=== PATIENT | male | born 1960 | race African-American/Black ===

== ENCOUNTER 2017-10-22 16:47 | Inpatient (IN) | payer OTHER ==
--- NOTE | 2017-10-22 17:40 | RAD ---
ABDOMEN TWO VIEWS: HISTORY: Abdomen pain. FINDINGS: Gas and stool throughout the colon and rectum. No differential air-fluid levels or evidence of free intraperitoneal gas. Calcifications over the pelvis are favored to represent phleboliths. Mild dege nerative changes of the hips. IMPRESSION: No significant abnormalities demonstrated. POS: [facility]
[2017-10-22] MEDS ORDERED: Ondansetron HCl/PF 4 MG/2 ML Vial ONE (17:52)
--- NOTE | 2017-10-22 20:20 | PDOC.FPRHP ---
- History of Present Illness Chief Complaint: admoinal pain History of Present Illness: 57 yo M with PMH of pancreatitis, ETOH abuse transfer from [place] for acute pancreatitis. At [facility] ED Lipase was 211. Started with epigastric pain 3 days ago that has worsened. Worse with food intake and has had associated nausea and vomiting. Also reports watery diarrhea, fevers, chills .Denies recent travel or sick contacts. Patient reports being hospitalized for pancreatitis twice within the past 3 years, says it is due to his chronic alcohol use. However, no definitive etiology was confirmed. He states he was recommended to have a cholcystectomy but it was never performed. Pt. has long standing ETOH abuse, currently drinking 1 pint of vodka per day. His last drink was 3 days ago . ED Course: In the ED pt was afebrile but was experiencing nausea and continued epigastric pain so was given morphine, zofran and 1L NS bolus. - Allergies/Adverse Reactions Allergies Allergy/AdvReac Type Severity Reaction Status Date / Time iodine Allergy Verified 10/22/17 20:48 shellfish derived Allergy Verified 10/22/17 20:48 - Home Medications Medication Instructions Recorded Confirmed Type Thiamine 100 mg PO DAILY #30 tab 09/20/16 10/22/17 Rx Allopurinol 100 mg PO BID 10/22/17 10/22/17 History Amlodipine Besylate [amLODIPine 10 mg PO DAILY 10/22/17 10/22/17 History Besylate] Aspirin [Adult Aspirin] 81 mg PO DAILY 10/22/17 10/22/17 History Citalopram Hydrobromide [CeleXA] 40 mg PO DAILY 10/22/17 10/22/17 History Lisinopril [Zestril] 30 mg PO BID 10/22/17 10/22/17 History Omeprazole 20 mg PO BID 10/22/17 10/22/17 History Zantac 150 mg PO DAILY 10/22/17 10/22/17 History glipiZIDE [Glipizide] 10 mg PO DAILY 10/22/17 10/22/17 History metFORMIN HCl [Metformin HCl] 500 mg PO DAILY 10/22/17 10/22/17 History - History PMHx: Pancreatitis, DM, Gout, HLD, GERD, PTSD PSHx: None FHx:Depression, HTN Social: Smokes 3-4 cigars a week since 1996. Endorses alcohol use for 40 years, used to drink multiple pints a day but has recently cut down to 1 pint of vodka/ day. Former cannabis use. - Review of Systems General: reports: fever/chills, weight/appetite/sleep changes. denies: night sweats Eyes: denies: eye pain, vision changes ENT: denies: nasal congestion, rhinorrhea Respiratory: denies: cough, congestion, shortness of breath Cardiovascular: denies: chest pain, palpitation, edema Gastrointestinal: reports: nausea, vomiting, diarrhea. denies: constipation Genitourinary: denies: dysuria, discharge Skin: denies: rashes, lesions Musculoskeletal: denies: pain, tenderness, swelling, arthritis/arthralgias Neurological: denies: syncope, seizure, weakness Psychological: reports: anxiety, depression - Vital signs BP: [154/88] HR: [59] RR: [16] Tmax: [98.4] Pox: [98]% on [RA] Wt: [81.4] - Physical Exam Constitutional: awake, alert and oriented -Constitutional: mild distress due to abdominal pain HEENT: normocephalic and atraumatic, PERRLA, EOMI, conjunctiva clear FMR H&P: Results - Labs Result Diagrams: 10/23/17 04:15 10/23/17 04:15 Lab results: Lactic Acid 1.1 mmol/L (0.5-2.2) 10/22/17 17:41 FMR H&P: A/P - Problem List (1) Alcohol withdrawal syndrome Current Visit: No Status: Acute Code(s): F10.239 - ALCOHOL DEPENDENCE WITH WITHDRAWAL, UNSPECIFIED (2) Alcohol abuse Current Visit: No Status: Chronic Code(s): F10.10 - ALCOHOL ABUSE, UNCOMPLICATED (3) Anxiety and depression Current Visit: No Status: Chronic Code(s): F41.9 - ANXIETY DISORDER, UNSPECIFIED; F32.9 - MAJOR DEPRESSIVE DISORDER, SINGLE EPISODE, UNSPECIFIED (4) Cholelithiases Current Visit: No Status: Chronic Code(s): K80.20 - CALCULUS OF GALLBLADDER W/O CHOLECYSTITIS W/O OBSTRUCTION Qualifiers: Cholelithiasis location: gallbladder Cholecystitis presence: without cholecystitis Biliary obstruction: without biliary obstruction Qualified Code(s): K80.20 - Calculus of gallbladder without cholecystitis without obstruction (5) Dyslipidemia Current Visit: No Status: Chronic Code(s): E78.5 - HYPERLIPIDEMIA, UNSPECIFIED (6) GERD (gastroesophageal reflux disease) Current Visit: No Status: Chronic Code(s): K21.9 - GASTRO-ESOPHAGEAL REFLUX DISEASE WITHOUT ESOPHAGITIS (7) Hypertension Current Visit: No Status: Chronic Code(s): I10 - ESSENTIAL (PRIMARY) HYPERTENSION - Plan 57 yo M with h/o of acute pancreatitis admitted for acute pancreatitis Acute pancreatitis likely 2/2 etoh abuse vs. cholelithiaiss -Outstanding ETOH abuse likely to that but will obtain RUQ US to r/o cholelithiasis -Lipase elevated at 211, diagnostic with actue pancreatitis -Also consider possibly underlying cholecystitis due to RUQ tenderness, +Bright' s. If U/S confirms, will consult general surgery for cholecstectomy -Due to RLQ tenderness, can consider possible atypical presentation of appendicitis. It pt. symptoms don't resolve with current management of acute pancreatitis, and other workup is negative, can consider CTabdomen to r/o -Start on mIVF, prn meds for pain control, NPO for now with slow advance of diet starting with CLD ETOH Abuse -Pt. not interested in stopping alcohol intake at this point -initiated [place] protocol (ASE score >10) DM2 -continue home meds, SS prn, accuchecsk HTN -continue home meds PTSD -continue home meds GERD -continue home meds FMR H&P: Upper Level - Pertinent history 57 yo AAM with PMH of depression, PTSD, alcohol abuse, HTN, DM2, GERD presenting for acute worsening of abdominal pain and NVD. Pt notes that for the past 3 days, he has begun feeling worse. It started with midepigastric pain 3 days ago and progressed to NVD 2 days ago. He has a history of EtOH abuse and multiple admissions for acute on chronic pancreatitis. Pt knows he needs to stop drinking and has before but recently relapsed. Pt endorses an inability to tolerate PO intake for the last 2 days so has not taken any of his normal medications. Pt denies fevers/chills, [place], CP, palpitations, cough, SOB, rash, or sick contacts. - Pertinent findings Vital signs reviewed in ER and wnl Gen: well developed, well nourished, in NAD CV: RRR, good S1/S2 Resp: normal effort, good air movement, CTAB Abd: BS+, diffusely TTP epigastrium especially RUQ and midline. voluntary guarding, no rebound. - Plan Date/Time: 10/22/172019 I, Niles Chen MD PGY3, have evaluated this patient and agree with findings/ plan as outlined by architectural intern resident. Pertinent changes/additions are listed here. 1. Acute pancreatitis 2/2 EtOH abuse vs cholelithiasis -Pt has a longstanding history of EtOH abuse and multiple hospital admissions for pancreatitis. He states he knows alcohol is the cause of this problems but notes at one point he was told he had gallstones a recommendation was made to have a cholecystectomy. EtOH more likely cause but will obtain RUQ US to rule out gallstone pancreatitis. -Pt meets diagnostic criteria with clinical exam and lipase that is >3x the upper limit of normal. Pt clinically stable at this time and appears to be mild pancreatitis. Sreedhar's score 1 due to age. -Admit to observation and plan for continued IVF, pain control, and introduction of diet when able to tolerate. -Clear liquid diet ordered to begin after obtaining abdominal US. 2. EtOH Abuse -Counseled cessation. -Pt's last EtOH was about 3 days ago. -Monitor with ASE scores. 3. HTN -Continue home medications, PRNs available. 4. DM2 -Continue home medications when pt starts PO intake. -Accuchecks qACHS. 5. Depression -Continue citalopram. PPx: Lovenox for VTE, Famotidine for GI. CODE status: FULL disposition: Admit under observation status for anticipated length of stay less than two midnights pending clinical course.
[2017-10-22] MEDS ORDERED: HYDROcodone/Acetaminophen 5/325 mg Tablet PO PRN ×2 (20:28)
[2017-10-22] MEDS ORDERED: Ondansetron HCl/PF 4 MG/2 ML Vial IVP PRN (20:28)
[2017-10-22] MEDS ORDERED: Ondansetron ODT 4 MG TAB SL PRN (20:28)
[2017-10-22] MEDS ORDERED: Sodium Chloride 0.9% 1,000 ML IV SCH (20:28)
[2017-10-22] MEDS ORDERED: Acetaminophen 325 MG TAB PO PRN (20:28)
[2017-10-22] MEDS ORDERED: Dextrose 50% Abboject 50 ML SYRINGE SLOW IVP PRN (21:20)
[2017-10-22] MEDS ORDERED: Dextrose 5% in Water 1,000 ML IV PRN (21:20)
[2017-10-22] MEDS ORDERED: Famotidine/PF 20 mg/2ml Vial SLOW IVP PRN (21:22)
[2017-10-22] MEDS ORDERED: HumaLOG 300 UNITS/3 ML VIAL SC PRN ×2 (21:22)
[2017-10-23] MEDS ORDERED: Lactated Ringer's 1,000 ML IV SCH (01:15)
[2017-10-23] MEDS ORDERED: Sodium Chloride 0.9% 1,000 ML IV SCH (02:00)
[2017-10-23 04:40] LABS: #Basophils 0.1 thou/uL (0.0-0.2); #Eosinphils 0.1 thou/uL (0.0-0.7); #Lymphocytes 1.7 thou/uL (1.20-3.40); #Monocytes 0.5 thou/uL (0.11-0.59); #Neutrophils 2.8 thou/uL (1.40-6.50); %Basophils 1.2 % (0.0-1.0); %Eosinophils 1.6 % (0.0-10.0); %Monocytes 8.9 % (0.0-10.0); %Neutrophils 55.3 % (42.0-75.0); Hemoglobin 17.5 g/dL (14.0-18.0); Mean Corpuscular HGB CONC 37.3 g/dL (32.0-36.0); Mean Corpuscular Hemoglobin 36.1 pg (27.0-31.0); Mean Corpuscular Volume 96.7 fL (78.0-98.0); Mean Platelet Volume 6.9 fL (7.4-10.4); Platelet Count 176 thou/uL (130-400); RBC Distribution Width 11.5 % (11.5-14.5); Red Blood Cell (RBC) Count 4.87 mill/uL (4.70-6.10)
[2017-10-23] MEDS: Lisinopril 20 MG TAB PO SCH ×2 (04:40→21:07)
[2017-10-23] MEDS: Amlodipine 10 MG TAB PO SCH (04:42)
[2017-10-23 04:50] LABS: ALT (SGPT) 46 U/L (8-55); AST (SGOT) 36 U/L (5-34); Albumin 4.4 g/dL (3.5-5.0); Alkaline Phosphatase 62 U/L (40-150); Anion Gap 15 mmol/L (10-20); BUN (Urea Nitrogen) 7 mg/dL (8.4-25.7); Bilirubin, Total 0.9 mg/dL (0.2-1.2); Calc. Creatinine Clearance 110 mL/min (70-130); Calcium 9.4 mg/dL (7.8-10.44); Carbon Dioxide 27 mmol/L (22-29); Chloride 101 mmol/L (98-107); Estimated GFR-MDRD Greater than 90; Globulin 3.1 g/dL (2.4-3.5); Glucose 112 mg/dL (70-105); Potassium 3.5 mmol/L (3.5-5.1); Protein, Total 7.5 g/dL (6.0-8.3); Sodium 139 mmol/L (136-145)
[2017-10-23] MEDS ORDERED: Lorazepam 2 MG/ML VIAL SLOW IVP PRN (04:56)
[2017-10-23] MEDS ORDERED: Ondansetron HCl/PF 4 MG/2 ML Vial IVP PRN (08:00)
--- NOTE | 2017-10-23 08:28 | PDOC.FM ---
- Subjective Subjective: Patient states he is nauseous this AM. He states yesterday he did not eat at all due to epigastric pain. The two days prior he had N/V. He last drank 3 days ago a pint of liquor. No significant overnight events. - Objective MAR Reviewed: Yes Vital Signs & Weight: Vital Signs (12 hours) Temp Pulse Resp BP BP Pulse Ox 10/23/17 07:38 97.6 F 75 15 162/105 H 96 10/23/17 04:45 182/107 H 10/23/17 04:42 61 182/107 H 10/23/17 03:19 98.3 F 61 18 179/108 H 98 10/23/17 00:20 98.3 F 58 L 20 173/102 H 96 10/22/17 22:17 172/102 H 10/22/17 21:21 97.9 F 58 L 12 10/22/17 20:34 97.9 F 58 L 12 187/110 H 97 Weight Weight 81.42 kg I&O: 10/22/17 10/23/17 10/24/17 06:59 06:59 06:59 Intake Total 1087 Balance 1087 Result Diagrams: 10/23/17 04:15 10/23/17 04:15 EKG Reviewed by me: No Radiology Reviewed by me: Yes <Geno Goetz - Last Filed: 10/23/17 09:15> - Objective Vital Signs & Weight: Vital Signs (12 hours) Temp Pulse Resp BP BP Pulse Ox 10/23/17 07:38 97.6 F 75 15 162/105 H 96 10/23/17 04:45 182/107 H 10/23/17 04:42 61 182/107 H 10/23/17 03:19 98.3 F 61 18 179/108 H 98 10/23/17 00:20 98.3 F 58 L 20 173/102 H 96 Weight Weight 81.42 kg I&O: 10/22/17 10/23/17 10/24/17 06:59 06:59 06:59 Intake Total 1087 Balance 1087 Result Diagrams: 10/23/17 04:15 10/23/17 04:15 <Ciera Fields - Last Filed: 10/23/17 10:55> Phys Exam - Physical Examination Constitutional: NAD HEENT: moist MMs Neck: supple Respiratory: no wheezing, clear to auscultation bilateral Cardiovascular: RRR, no significant murmur Gastrointestinal: soft Tender to palpation in epigastric region, RUQ and LLQ Positive Bright's sign Musculoskeletal: no edema, pulses present Neurological: non-focal Psychiatric: A&O x 3 Skin: no rash, normal turgor, cap refill <2 seconds <Geno Goetz - Last Filed: 10/23/17 09:15> Dx/Plan (1) Pancreatitis, acute Code(s): K85.90 - ACUTE PANCREATITIS WITHOUT NECROSIS OR INFECTION, UNSP Status: Acute Qualifiers: Pancreatitis type: alcohol induced (2) Alcohol abuse Code(s): F10.10 - ALCOHOL ABUSE, UNCOMPLICATED Status: Chronic (3) Anxiety and depression Code(s): F41.9 - ANXIETY DISORDER, UNSPECIFIED; F32.9 - MAJOR DEPRESSIVE DISORDER, SINGLE EPISODE, UNSPECIFIED Status: Chronic (4) Dyslipidemia Code(s): E78.5 - HYPERLIPIDEMIA, UNSPECIFIED Status: Chronic (5) GERD (gastroesophageal reflux disease) Code(s): K21.9 - GASTRO-ESOPHAGEAL REFLUX DISEASE WITHOUT ESOPHAGITIS Status: Chronic (6) Hypertension Code(s): I10 - ESSENTIAL (PRIMARY) HYPERTENSION Status: Chronic - Plan Plan: Acute pancreatitis likely 2/2 etoh abuse vs. cholelithiaiss -Hx of ETOH abuse likely contributing to acute pancreatitis. Patient states he last drank 3 days ago which is when N/V started; RUQ US to r/o cholelithiasis -Lipase elevated at 211 -If u/s confirms gallstones, may consult general surgery -continue on mIVF, prn meds for pain control, NPO for now with slow advance of diet starting with CLD -zofran for nausea ETOH Abuse -Pt. not interested in quitting alcohol intake at this point -initiated ASE protocol (ASE score >10) DM2 -continue home meds, SS prn, accuchecks HTN -continue home meds PTSD -continue home meds GERD -continue home meds DVT PPX: lovenox GI PPX: omeprazole Dispo: Stable. Increase diet as tolerated. <Geno Goetz - Last Filed: 10/23/17 09:15> Attending Addendum - Attending Addendum Date/Time: 10/23/17 1046 I personally evaluated the patient and discussed the management with Dr. Goetz I agree with the History, Examination, Assessment and Plan documented above with any addition or exceptions noted below- Reports nausea currently improved. Pain improved. Afebrile VSS. A/P: 1) Pancreatitis- USG with sludge in GB, no stones. Most likely secondary to alcohol abuse. Continue IVF, pain meds, and anti-emetics. Start clear liquid diet. 2) Alcohol abuse- no desire to quit at this time; Continue ASE protocol. No evidence of withdrawal. <Ciera Fields - Last Filed: 10/23/17 10:55>
[2017-10-23] MEDS ORDERED: Non-Formulary Item 1 EACH (Omeprazole [Omeprazole] 20 MG) PO SCH (09:00)
--- NOTE | 2017-10-23 09:07 | ULT ---
RIGHT UPPER QUADRANT ULTRASOUND: Date: 10/23/17 INDICATION: Evaluate pancreas and gallbladder for nausea, vomiting, and right upper quadrant pain with diarrhea. History of pancreatitis. FINDINGS: There is prominent fatty infiltration of the liver. There is layered sludge within the gallbladder. C ommon bile duct measures 3.7 mm. Pancreas is largely obscured. The right kidney measures 11.9 cm. The re is a 1.5 cm cyst in the superior pole of right kidney which is stable to the comparison dated 08/27 06/12. IMPRESSION: 1. Prominent fatty infiltration of the liver. 2. Layering gallbladder sludge without sonographic evidence of acute cholecystitis. 3. Small right renal cyst. POS: [facility]
[2017-10-23] MEDS: Aspirin 81 mg Enteric Coated Tablet PO SCH (09:22)
[2017-10-23] MEDS: metFORMIN 500 MG TAB PO SCH (09:22)
[2017-10-23] MEDS: Citalopram 20 MG TAB PO SCH (09:22)
[2017-10-23] MEDS: Enoxaparin Sodium 40 MG/0.4 ML SYRINGE SC SCH (09:23)
[2017-10-23] MEDS: Sodium Chloride 0.9% 1,000 ML IV SCH ×2 (13:02→18:14)
[2017-10-23 13:52] VITALS: BMI 25.0
[2017-10-24] MEDS: hydrALAZINE 20 MG/ML VIAL SLOW IVP PRN (00:55)
[2017-10-24 05:43] LABS: #Monocytes 0.4 thou/uL (0.11-0.59); #Neutrophils 3.7 thou/uL (1.40-6.50); %Basophils 0.2 % (0.0-1.0); %Eosinophils 0.6 % (0.0-10.0); %Lymphocytes 18.7 % (21.0-51.0); %Monocytes 7.9 % (0.0-10.0); %Neutrophils 72.5 % (42.0-75.0); Hemoglobin 18.3 g/dL (14.0-18.0); Mean Corpuscular Hemoglobin 35.6 pg (27.0-31.0); Mean Platelet Volume 7.2 fL (7.4-10.4); Platelet Count 184 thou/uL (130-400); RBC Distribution Width 11.6 % (11.5-14.5); Red Blood Cell (RBC) Count 5.16 mill/uL (4.70-6.10); White Blood Cell (WBC) Count 5.1 thou/uL (4.8-10.8)
[2017-10-24] MEDS: Sodium Chloride 0.9% 1,000 ML IV SCH ×4 (05:56→20:16)
[2017-10-24 06:03] LABS: ALT (SGPT) 39 U/L (8-55); AST (SGOT) 28 U/L (5-34); Albumin 4.5 g/dL (3.5-5.0); Alkaline Phosphatase 65 U/L (40-150); Anion Gap 17 mmol/L (10-20); BUN (Urea Nitrogen) 8 mg/dL (8.4-25.7); Bilirubin, Total 0.8 mg/dL (0.2-1.2); Calc. Creatinine Clearance 94 mL/min (70-130); Calcium 9.9 mg/dL (7.8-10.44); Carbon Dioxide 25 mmol/L (22-29); Chloride 98 mmol/L (98-107); Estimated GFR-MDRD Greater than 90; Globulin 3.2 g/dL (2.4-3.5); Glucose 141 mg/dL (70-105); Potassium 3.5 mmol/L (3.5-5.1); Protein, Total 7.7 g/dL (6.0-8.3); Sodium 136 mmol/L (136-145)
--- NOTE | 2017-10-24 08:20 | PDOC.FM ---
- Subjective Subjective: Patient doing well this AM. No significant overnight events. Patient still having difficulty tolerating PO without pain. He last got morphine around 3 AM. His pain is 2/10 currently. He is about to try eating some broth. He says that he is still having pain in the epigastric region, but everywhere else feels much better. - Objective MAR Reviewed: Yes Vital Signs & Weight: Vital Signs (12 hours) Temp Pulse Resp BP BP Pulse Ox 10/24/17 07:59 170/100 H 10/24/17 07:34 98.9 F 72 16 96 10/24/17 07:29 98.9 F 72 16 170/100 H 96 10/24/17 04:00 98.1 F 83 16 162/89 H 165/89 H 96 10/24/17 02:00 98.3 F 69 16 169/78 H 97 10/24/17 00:55 69 181/102 H 10/24/17 00:00 98.7 F 69 16 181/102 H 181/102 H 97 10/23/17 21:07 134/92 H Weight Admit Weight 83.37 kg Weight 81.42 kg I&O: 10/23/17 10/24/17 10/25/17 06:59 06:59 06:59 Intake Total 1087 2053 Balance 1087 2053 Result Diagrams: 10/24/17 04:22 10/24/17 04:22 EKG Reviewed by me: No Radiology Reviewed by me: No <Geno Goetz - Last Filed: 10/24/17 09:06> - Objective Vital Signs & Weight: Vital Signs (12 hours) Temp Pulse Resp BP BP Pulse Ox 10/24/17 08:34 170/100 H 10/24/17 08:33 72 170/100 H 10/24/17 07:59 170/100 H 10/24/17 07:34 98.9 F 72 16 96 10/24/17 07:29 98.9 F 72 16 170/100 H 96 10/24/17 04:00 98.1 F 83 16 162/89 H 165/89 H 96 10/24/17 02:00 98.3 F 69 16 169/78 H 97 10/24/17 00:55 69 181/102 H 10/24/17 00:00 98.7 F 69 16 181/102 H 181/102 H 97 Weight Admit Weight 83.37 kg Weight 81.42 kg I&O: 10/23/17 10/24/17 10/25/17 06:59 06:59 06:59 Intake Total 1087 2052 Balance [id number] Result Diagrams: 10/24/17 04:22 10/24/17 04:22 <Ciera Fields - Last Filed: 10/24/17 10:12> Phys Exam - Physical Examination Constitutional: NAD HEENT: moist MMs, sclera anicteric Neck: supple Respiratory: no wheezing, clear to auscultation bilateral Cardiovascular: RRR, no significant murmur Gastrointestinal: soft, no distention, positive bowel sounds Tender to palpation in epigastric region Musculoskeletal: no edema, pulses present Neurological: non-focal Psychiatric: normal affect, A&O x 3 Skin: no rash, cap refill <2 seconds <Geno Goetz - Last Filed: 10/24/17 09:06> Dx/Plan (1) Pancreatitis, acute Code(s): K85.90 - ACUTE PANCREATITIS WITHOUT NECROSIS OR INFECTION, UNSP Status: Acute Qualifiers: Pancreatitis type: alcohol induced (2) Alcohol abuse Code(s): F10.10 - ALCOHOL ABUSE, UNCOMPLICATED Status: Chronic (3) Anxiety and depression Code(s): F41.9 - ANXIETY DISORDER, UNSPECIFIED; F32.9 - MAJOR DEPRESSIVE DISORDER, SINGLE EPISODE, UNSPECIFIED Status: Chronic (4) Dyslipidemia Code(s): E78.5 - HYPERLIPIDEMIA, UNSPECIFIED Status: Chronic (5) GERD (gastroesophageal reflux disease) Code(s): K21.9 - GASTRO-ESOPHAGEAL REFLUX DISEASE WITHOUT ESOPHAGITIS Status: Chronic (6) Hypertension Code(s): I10 - ESSENTIAL (PRIMARY) HYPERTENSION Status: Chronic - Plan Plan: Acute pancreatitis likely 2/2 etoh abuse vs. cholelithiaiss -Hx of ETOH abuse likely contributing to acute pancreatitis. Patient states he last drank 4 days ago which is when N/V started -Lipase elevated at 211 -Abdominal u/s showed biliary sludge without evidence of gallstones or acute cholecystitis -continue on mIVF, prn meds for pain control (required 8 mg in last 24 horus), CLD with ADAT -zofran for nausea ETOH Abuse -Pt. not interested in quitting alcohol intake at this point -initiated ASE protocol (ASE score >10); required ativan x1 yesterday -ASE score this AM 3 -Continue to monitor for signs and symptoms of withdrawal DM2 -continue home meds -mild SSI prn -accuchecks HTN -continue home meds -add HCTZ as BP remaining elevated PTSD -continue home meds GERD -continue home meds DVT PPX: lovenox GI PPX: pantoprazole Dispo: Stable. Increase diet as tolerated. Monitor pain. <Geno Goetz - Last Filed: 10/24/17 09:06> Attending Addendum - Attending Addendum Date/Time: 10/24/17 1009 I personally evaluated the patient and discussed the management with Dr. Goetz I agree with the History, Examination, Assessment and Plan documented above with any addition or exceptions noted below- Patient without complaints. Pain controlled with current meds. Drinking clear liquids this morning. Afebrile VSS. A/P: 1) Pancreatitis- continue clear liquids, pain meds. Advance diet slowly if continues to tolerate. 2) Alchol abuse- no evidence of withdrawal; continue ASE protocol. 3) HTN- meds adjusted; continue to monitor. <Ciera Fields - Last Filed: 10/24/17 10:12>
[2017-10-24] MEDS: Citalopram 20 MG TAB PO SCH (08:33)
[2017-10-24] MEDS: Aspirin 81 mg Enteric Coated Tablet PO SCH (08:33)
[2017-10-24] MEDS: Amlodipine 10 MG TAB PO SCH (08:33)
[2017-10-24] MEDS: metFORMIN 500 MG TAB PO SCH (08:34)
[2017-10-24] MEDS: Lisinopril 20 MG TAB PO SCH ×2 (08:34→20:17)
[2017-10-24] MEDS: Enoxaparin Sodium 40 MG/0.4 ML SYRINGE SC SCH (08:36)
[2017-10-24] MEDS ORDERED: Hydrochlorothiazide 25 MG TAB PO SCH (09:00)
[2017-10-24] MEDS ORDERED: Acetaminophen 500 MG TAB PO SCH (13:00)
[2017-10-24] MEDS ORDERED: Acetaminophen 325 MG TAB PO PRN (17:05)
[2017-10-25] MEDS: hydrALAZINE 20 MG/ML VIAL SLOW IVP PRN (00:22)
[2017-10-25] MEDS: Sodium Chloride 0.9% 1,000 ML IV SCH (04:28)
[2017-10-25 05:26] LABS: ALT (SGPT) 37 U/L (8-55); AST (SGOT) 44 U/L (5-34); Albumin 4.1 g/dL (3.5-5.0); Alkaline Phosphatase 58 U/L (40-150); Anion Gap 15 mmol/L (10-20); BUN (Urea Nitrogen) 8 mg/dL (8.4-25.7); Bilirubin, Total 0.7 mg/dL (0.2-1.2); Calc. Creatinine Clearance 109 mL/min (70-130); Calcium 9.6 mg/dL (7.8-10.44); Carbon Dioxide 22 mmol/L (22-29); Chloride 103 mmol/L (98-107); Estimated GFR-MDRD Greater than 90; Globulin 3.1 g/dL (2.4-3.5); Glucose 121 mg/dL (70-105); Potassium 3.3 mmol/L (3.5-5.1); Protein, Total 7.2 g/dL (6.0-8.3); Sodium 137 mmol/L (136-145)
[2017-10-25 06:38] LABS: #Eosinphils 0.1 thou/uL (0.0-0.7); #Lymphocytes 1.5 thou/uL (1.20-3.40); #Monocytes 0.5 thou/uL (0.11-0.59); #Neutrophils 2.4 thou/uL (1.40-6.50); %Basophils 0.6 % (0.0-1.0); %Eosinophils 1.4 % (0.0-10.0); %Lymphocytes 34.1 % (21.0-51.0); %Monocytes 10.8 % (0.0-10.0); %Neutrophils 53.1 % (42.0-75.0); Hemoglobin 17.2 g/dL (14.0-18.0); Mean Corpuscular HGB CONC 36.9 g/dL (32.0-36.0); Mean Corpuscular Hemoglobin 35.3 pg (27.0-31.0); Mean Corpuscular Volume 95.6 fL (78.0-98.0); Mean Platelet Volume 7.5 fL (7.4-10.4); Platelet Count 182 thou/uL (130-400); RBC Distribution Width 11.5 % (11.5-14.5); Red Blood Cell (RBC) Count 4.87 mill/uL (4.70-6.10); White Blood Cell (WBC) Count 4.5 thou/uL (4.8-10.8)
[2017-10-25 07:57] VITALS: BP 127/84; TEMP 98.2
[2017-10-25] MEDS: Lisinopril 20 MG TAB PO SCH (08:32)
[2017-10-25] MEDS: Amlodipine 10 MG TAB PO SCH (08:33)
[2017-10-25] MEDS: Aspirin 81 mg Enteric Coated Tablet PO SCH (08:33)
[2017-10-25] MEDS: metFORMIN 500 MG TAB PO SCH (08:33)
[2017-10-25] MEDS: Citalopram 20 MG TAB PO SCH (08:33)
[2017-10-25] MEDS: Enoxaparin Sodium 40 MG/0.4 ML SYRINGE SC SCH (08:34)
--- NOTE | 2017-10-25 09:42 | PDOC.FM ---
- Subjective Subjective: Patient doing well this AM. No significant overnight events. Tolerating regular diet since last night. Up ambulating without difficulties. Has not required pain medications. - Objective MAR Reviewed: Yes Vital Signs & Weight: Vital Signs (12 hours) Temp Pulse Resp BP BP Pulse Ox 10/25/17 08:33 65 127/84 10/25/17 08:32 127/84 10/25/17 08:00 98.2 F 65 20 127/84 97 10/25/17 07:55 98.2 F 65 20 127/84 97 10/25/17 04:00 98.5 F 63 18 149/87 H 149/87 H 96 10/25/17 00:35 98.4 F 61 18 161/112 H 97 10/25/17 00:22 64 170/108 H Weight Admit Weight 83.37 kg Weight 81.42 kg I&O: 10/24/17 10/25/17 10/26/17 06:59 06:59 06:59 Intake Total 2052 4349 Balance 2052 4349 Result Diagrams: 10/25/17 04:07 10/25/17 04:07 EKG Reviewed by me: No Radiology Reviewed by me: Yes <Geno Goetz - Last Filed: 10/25/17 09:40> - Objective Vital Signs & Weight: Vital Signs (12 hours) Temp Pulse Resp BP BP Pulse Ox 10/25/17 08:33 65 127/84 10/25/17 08:32 127/84 10/25/17 08:00 98.2 F 65 20 127/84 97 10/25/17 07:55 98.2 F 65 20 127/84 97 10/25/17 04:00 98.5 F 63 18 149/87 H 149/87 H 96 10/25/17 00:35 98.4 F 61 18 161/112 H 97 10/25/17 00:22 64 170/108 H Weight Admit Weight 83.37 kg Weight 81.42 kg I&O: 10/24/17 10/25/17 10/26/17 06:59 06:59 06:59 Intake Total 2052 4349 Balance 20520 Result Diagrams: 10/25/17 04:07 10/25/17 04:07 <Ciera Fields - Last Filed: 10/25/17 11:01> Phys Exam - Physical Examination Constitutional: NAD HEENT: moist MMs Neck: supple Respiratory: clear to auscultation bilateral Cardiovascular: RRR, no significant murmur Gastrointestinal: soft, no distention, positive bowel sounds Mildly tender epigastric region Musculoskeletal: no edema, pulses present Neurological: non-focal Psychiatric: normal affect, A&O x 3 Skin: no rash, cap refill <2 seconds <Geno Goetz - Last Filed: 10/25/17 09:40> Dx/Plan (1) Pancreatitis, acute Code(s): K85.90 - ACUTE PANCREATITIS WITHOUT NECROSIS OR INFECTION, UNSP Status: Acute Qualifiers: Pancreatitis type: alcohol induced (2) Alcohol abuse Code(s): F10.10 - ALCOHOL ABUSE, UNCOMPLICATED Status: Chronic (3) Anxiety and depression Code(s): F41.9 - ANXIETY DISORDER, UNSPECIFIED; F32.9 - MAJOR DEPRESSIVE DISORDER, SINGLE EPISODE, UNSPECIFIED Status: Chronic (4) Dyslipidemia Code(s): E78.5 - HYPERLIPIDEMIA, UNSPECIFIED Status: Chronic (5) GERD (gastroesophageal reflux disease) Code(s): K21.9 - GASTRO-ESOPHAGEAL REFLUX DISEASE WITHOUT ESOPHAGITIS Status: Chronic (6) Hypertension Code(s): I10 - ESSENTIAL (PRIMARY) HYPERTENSION Status: Chronic - Plan Plan: Acute pancreatitis likely 2/2 etoh abuse vs. cholelithiasis -Hx of ETOH abuse likely contributing to acute pancreatitis. Patient states he last drank 5 days ago which is when N/V started -Lipase elevated at 211 -Abdominal u/s showed biliary sludge without evidence of gallstones or acute cholecystitis -Patient has tolerated regular diet since last night -zofran for nausea ETOH Abuse -Pt. not interested in quitting alcohol intake at this point -initiated ASE protocol (ASE score >10); required ativan x1 since hospitalization -ASE score this AM 1 DM2 -continue home meds -mild SSI prn -accuchecks HTN -continue home meds -HCTZ d/c'd due to concerns for causing pancreatitis; initiated metoprolol PTSD -continue home meds GERD -continue home meds DVT PPX: lovenox GI PPX: pantoprazole Dispo: Stable. Plan for d/c home today. <Geno Goetz - Last Filed: 10/25/17 09:40> Attending Addendum - Attending Addendum Date/Time: 10/25/17 9741 I personally evaluated the patient and discussed the management with Dr. Goetz I agree with the History, Examination, Assessment and Plan documented above with any addition or exceptions noted below- Patient without complaints. Pain resolved. No further N/V. Tolerating diet since last night. Afebrile VSS. A/P: 1 ) Pancreatitis-resolving. D/c home today. 2) Alcohol abuse - no evidence of withdrawal and does not desire to stop. Encouraged cessation. <Ciera Fields - Last Filed: 10/25/17 11:01>
== END 2017-10-25 12:24 | disposition home or self-care (01) | DRG 440 ==
LOC: ERS 16:47 → OBSVTOIN 20:16 → 2SW 20:16 → T4-B 10-23 17:39
PROVIDERS: ADMIT Family Medicine; ATTEND Family Medicine
DX: K85.20 Alcohol induced acute pancreatitis without necrosis or infection (principal); F10.10 Alcohol abuse, uncomplicated; E11.9 Type 2 diabetes mellitus without complications; E78.5 Hyperlipidemia, unspecified; K21.9 Gastro-esophageal reflux disease without esophagitis; F43.10 Post-traumatic stress disorder, unspecified; M10.9 Gout, unspecified; F41.9 Anxiety disorder, unspecified; F32.9 Major depressive disorder, single episode, unspecified; K86.1 Other chronic pancreatitis; F17.290 Nicotine dependence, other tobacco product, uncomplicated; Z91.013 Allergy to seafood; Z88.8 Allergy status to other drugs, medicaments and biological substances; Z79.84 Long term (current) use of oral hypoglycemic drugs; Z79.82 Long term (current) use of aspirin; Z79.899 Other long term (current) drug therapy
CPT/HCPCS: 36415; 36416; 74019; 76705; 80053; 83605; 83615; 85025; J0360; J1650; J2060; J2270; J2405